=== PATIENT | male | born 1940 | race Caucasian/White ===

== ENCOUNTER 2018-01-12 05:28 | Inpatient (IN) | payer MEDICARE, BC ==
[2018-01-12] MEDS ORDERED: CEFAZOLIN 1 GM INJ IM (06:30)
[2018-01-12] MEDS ORDERED: PROPOFOL 20 ML (06:56)
[2018-01-12] MEDS ORDERED: ROCURONIUM 50 MG INJ ×2 (06:56→07:49)
[2018-01-12] MEDS ORDERED: ETOMIDATE 20 MG INJ (06:56)
[2018-01-12] MEDS ORDERED: SODIUM CL BACTERIOSTATIC 30 ML INJ (06:56)
[2018-01-12] MEDS ORDERED: LIDOCAINE 1% (MDV) 20 ML INJ (06:57)
[2018-01-12] MEDS ORDERED: NALOXONE (0.4 MG/ML) INJ IV (07:00)
[2018-01-12] MEDS ORDERED: BISACODYL 10 MG SUPP PR (07:00)
[2018-01-12] MEDS ORDERED: ONDANSETRON 4 MG INJ IV ×2 (07:00→12:30)
[2018-01-12] MEDS ORDERED: SUCCINYLCHOLINE CHLORIDE 100 MG/5 ML SYG IV (07:00)
[2018-01-12] MEDS: LACTATED RINGER'S 1,000 ML IV* (07:00)
[2018-01-12] MEDS ORDERED: AL HYDROX/MG HYDROX/SIMETH 30 ML CUP PO (07:00)
[2018-01-12] MEDS ORDERED: CEPASTAT LOZENGE MT (07:00)
[2018-01-12] MEDS ORDERED: DIPHENHYDRAMINE 50 MG INJ IV (07:00)
[2018-01-12] MEDS ORDERED: DIPHENHYDRAMINE 25 MG CAP PO (07:00)
[2018-01-12] MEDS ORDERED: HYDROCODONE/APAP (10/325) TAB PO (07:00)
[2018-01-12] MEDS: CEFAZOLIN 2 GM/50 ML (PMX) 50 ML IVPB (07:20)
[2018-01-12] MEDS ORDERED: PHENYLephrine (100 MCG/ML) 5ML SYG (07:25)
[2018-01-12] MEDS ORDERED: CEFAZOLIN 1 GM INJ ×2 (07:28→11:20)
[2018-01-12] MEDS ORDERED: ONDANSETRON 4 MG INJ (08:20)
[2018-01-12] MEDS ORDERED: DEXAMETHASONE 4 MG/ML 1 ML INJ (08:20)
[2018-01-12] MEDS: CA CHLORIDE 10% 10 ML SYRINGE (08:34)
[2018-01-12] MEDS: BUPIVACAINE 0.25% (MPF) 30 ML INJ (08:34)
[2018-01-12] MEDS: CEFAZOLIN 1 GM INJ (08:35)
[2018-01-12] MEDS: GELATIN SIZE 100 SPONGE (08:36)
[2018-01-12] MEDS: HEPARIN 1000 UNITS/ML 10 ML INJ ×2 (08:36)
[2018-01-12] MEDS: SURGIFOAM POWDER 1 GM KIT (08:36)
[2018-01-12] MEDS: THROMBIN 5000 UNIT VIAL ×2 (08:37→10:27)
[2018-01-12] MEDS ORDERED: THROMBIN(HUM PLAS)/FIBRINOG/CA 5 ML VIAL TOP (10:34)
[2018-01-12] MEDS ORDERED: SUGAMMADEX SODIUM 200 MG/2 ML VIAL IV (11:50)
[2018-01-12] MEDS ORDERED: FENTAnyl 50 MCG/ML VIAL (11:55)
[2018-01-12] MEDS: HYDROmorphONE 0.2 MG/ML PCA IV ×2 (12:20→22:08)
[2018-01-12] MEDS: ACETAMINOPHEN 1000MG/100ML IV 100 ML IVPB (12:28)
[2018-01-12] MEDS: CEFAZOLIN 1 GM/50 ML (PMX) 50 ML IVPB ×2 (12:28→20:41)
[2018-01-12] MEDS ORDERED: HYDROmorphONE (0.2 MG/ML) 10ML SYG IV (12:30)
[2018-01-12] MEDS ORDERED: MEPERIDINE 25 MG INJ IV (12:30)
[2018-01-12] MEDS ORDERED: LABETALOL HCL 20MG INJ IV (12:30)
[2018-01-12] MEDS ORDERED: hydrALAzine 20 MG INJ IV (12:30)
[2018-01-12] MEDS: HYDROmorphONE (0.2 MG/ML) 10ML SYG IV (12:31)
[2018-01-12] MEDS: LOSARTAN 25 MG TAB PO (13:00)
[2018-01-12] MEDS: NEBIVOLOL 5 MG TAB PO (13:00)
[2018-01-12] MEDS: D5W-0.45 NACL + KCL 20 MEQ 1,000 ML IV ×2 (16:30→17:23)
[2018-01-12] MEDS: TAMSULOSIN (SR) 0.4 MG CAP PO (20:41)
[2018-01-12] MEDS: FERROUS SULFATE (EC) 325 MG TAB PO (20:41)
[2018-01-12] MEDS: DOCUSATE SODIUM 100 MG CAP PO (20:41)
[2018-01-12] MEDS: QUETIAPINE 25 MG TAB PO (22:21)
[2018-01-13] MEDS: D5W-0.45 NACL + KCL 20 MEQ 1,000 ML IV ×3 (03:17→23:00)
[2018-01-13] MEDS: CEFAZOLIN 1 GM/50 ML (PMX) 50 ML IVPB (03:17)
[2018-01-13] MEDS: PANTOPRAZOLE 40 MG INJ IV (05:14)
[2018-01-13 05:46] LABS: ADD MAN DIFF? NO
[2018-01-13 06:13] LABS: ANION GAP 8 (8-16); BLOOD UREA NITROGEN 18 mg/dl (7-20); CALCIUM 8.2 mg/dl (8.4-10.2); CARBON DIOXIDE 31 mmol/L (21-31); CHLORIDE 103 mmol/L (97-110); CREATININE 0.98 mg/dl (0.61-1.24); GLUCOSE 137 mg/dl (70-220); MAGNESIUM 1.8 mg/dl (1.7-2.5); POTASSIUM 4.3 mmol/L (3.5-5.1); SODIUM 138 mmol/L (135-144)
[2018-01-13 07:27] LABS: BASOPHILS % 0.2 % (0.0-2.0); EOSINOPHILS % 0.1 % (0.0-7.0); HEMATOCRIT 29.5 % (42.0-52.0); LYMPHOCYTES # 1.1 10^3/ul (0.8-2.9); LYMPHOCYTES % 10.4 % (15.0-51.0); MEAN CORPUSCULAR HEMOGLOBIN 33.4 pg (29.0-33.0); MEAN CORPUSCULAR HGB CONC 33.9 g/dl (32.0-37.0); MEAN CORPUSCULAR VOLUME 98.7 fl (82.0-101.0); MEAN PLATELET VOLUME 10.2 fl (7.4-10.4); MONOCYTE # 1.2 10^3/ul (0.3-0.9); MONOCYTES % 11.4 % (0.0-11.0); NEUTROPHIL # 7.8 10^3/ul (1.6-7.5); NEUTROPHILS % 77.7 % (39.0-77.0); PLATELET COUNT 115 10^3/UL (140-415); RED BLOOD COUNT 2.99 10^6/ul (4.70-6.10); RED CELL DISTRIBUTION WIDTH 12.9 % (11.5-14.5)
[2018-01-13 07:27] LABS: WHITE BLOOD COUNT 10.1 10^3/ul (4.8-10.8)
[2018-01-13] MEDS: FERROUS SULFATE (EC) 325 MG TAB PO ×3 (08:47→20:29)
[2018-01-13] MEDS: ASCORBIC ACID 500 MG TAB PO (08:47)
[2018-01-13] MEDS: DOCUSATE SODIUM 100 MG CAP PO ×2 (08:47→20:29)
[2018-01-13] MEDS: QUETIAPINE 25 MG TAB PO ×2 (08:48→20:29)
[2018-01-13] MEDS: FINASTERIDE 5 MG TAB PO (08:48)
[2018-01-13] MEDS: HYDROmorphONE 0.2 MG/ML PCA IV ×2 (08:48→18:00)
[2018-01-13] MEDS: CYCLOBENZAPRINE 10 MG TAB PO ×2 (08:53→16:42)
[2018-01-13] MEDS: NEBIVOLOL 5 MG TAB PO (09:00)
[2018-01-13] MEDS ORDERED: NON-FORMULARY/PATIENT OWN MED (Omeprazole* 40 MG) PO (09:00)
[2018-01-13] MEDS ORDERED: NISOLDIPINE 34 MG PO (09:00)
[2018-01-13] MEDS: LOSARTAN 25 MG TAB PO (09:00)
[2018-01-13] MEDS: HYDROCODONE/APAP (10/325) TAB PO (18:08)
[2018-01-13] MEDS: TAMSULOSIN (SR) 0.4 MG CAP PO (20:29)
[2018-01-13] MEDS: ATORVASTATIN 20 MG TAB PO (20:29)
[2018-01-14] MEDS: ACETAMINOPHEN 325 MG TAB PO (00:45)
[2018-01-14] MEDS: CYCLOBENZAPRINE 10 MG TAB PO ×3 (00:47→21:57)
[2018-01-14 04:50] LABS: ADD MAN DIFF? NO
[2018-01-14 04:58] LABS: WHITE BLOOD COUNT 9.8 10^3/ul (4.8-10.8)
[2018-01-14 04:58] LABS: ABNORMAL IP MESSAGE 1; BASOPHILS % 0.2 % (0.0-2.0); EOSINOPHILS # 0.1 10^3/ul (0.0-0.5); EOSINOPHILS % 0.9 % (0.0-7.0); HEMATOCRIT 27.4 % (42.0-52.0); HEMOGLOBIN 9.4 g/dl (14.0-18.0); LYMPHOCYTES # 1.1 10^3/ul (0.8-2.9); LYMPHOCYTES % 11.6 % (15.0-51.0); MEAN CORPUSCULAR HEMOGLOBIN 34.1 pg (29.0-33.0); MEAN CORPUSCULAR HGB CONC 34.3 g/dl (32.0-37.0); MEAN CORPUSCULAR VOLUME 99.3 fl (82.0-101.0); MEAN PLATELET VOLUME 9.8 fl (7.4-10.4); MONOCYTE # 1.1 10^3/ul (0.3-0.9); MONOCYTES % 11.7 % (0.0-11.0); NEUTROPHIL # 7.4 10^3/ul (1.6-7.5); NEUTROPHILS % 75.3 % (39.0-77.0); PLATELET COUNT 91 10^3/UL (140-415); POSITIVE DIFF @See below; RED BLOOD COUNT 2.76 10^6/ul (4.70-6.10); RED CELL DISTRIBUTION WIDTH 12.7 % (11.5-14.5)
[2018-01-14 05:18] LABS: ANION GAP 7 (8-16); BLOOD UREA NITROGEN 10 mg/dl (7-20); CALCIUM 8.3 mg/dl (8.4-10.2); CARBON DIOXIDE 32 mmol/L (21-31); CHLORIDE 103 mmol/L (97-110); CREATININE 0.78 mg/dl (0.61-1.24); GLUCOSE 106 mg/dl (70-220); MAGNESIUM 1.8 mg/dl (1.7-2.5); POTASSIUM 3.8 mmol/L (3.5-5.1); SODIUM 138 mmol/L (135-144)
[2018-01-14] MEDS: PANTOPRAZOLE 40 MG INJ IV (06:02)
[2018-01-14] MEDS: HYDROCODONE/APAP (10/325) TAB PO ×4 (08:22→20:57)
[2018-01-14] MEDS: ASCORBIC ACID 500 MG TAB PO (08:58)
[2018-01-14] MEDS: FINASTERIDE 5 MG TAB PO (08:58)
[2018-01-14] MEDS: AMLODIPINE 5 MG TAB PO ×2 (08:59→20:58)
[2018-01-14] MEDS: NEBIVOLOL 5 MG TAB PO (08:59)
[2018-01-14] MEDS: LOSARTAN 25 MG TAB PO (08:59)
[2018-01-14] MEDS: D5W-0.45 NACL + KCL 20 MEQ 1,000 ML IV (09:00)
[2018-01-14] MEDS: QUETIAPINE 25 MG TAB PO ×2 (09:00→20:57)
[2018-01-14] MEDS: DOCUSATE SODIUM 100 MG CAP PO ×2 (09:00→20:57)
[2018-01-14] MEDS: FERROUS SULFATE (EC) 325 MG TAB PO ×3 (09:00→20:57)
[2018-01-14 11:46] LABS: ADD UMIC YES; UR ASCORBIC ACID 20 mg/dL (NEGATIVE); UR BACTERIA FEW /HPF (NONE SEEN); UR BILIRUBIN (Dip) NEGATIVE (NEGATIVE); UR BLOOD (Dip) 3+ mg/dL (NEGATIVE); UR CLARITY SLIGHTLY CLOUDY (CLEAR); UR COLOR RED (YELLOW); UR GLUCOSE (Dip) NEGATIVE (NEGATIVE); UR KETONES (Dip) NEGATIVE (NEGATIVE); UR LEUKOCYTE ESTERASE (Dip) TRACE Leu/ul (NEGATIVE); UR NITRITE (Dip) NEGATIVE (NEGATIVE); UR RBC > 182 /HPF (0-5); UR SPECIFIC GRAVITY (Dip) 1.011 (1.003-1.030); UR TOTAL PROTEIN (Dip) 2+ mg/dl (NEGATIVE); UR UROBILINOGEN (Dip) NEGATIVE (NEGATIVE); UR WBC > 182 /HPF (0-5)
[2018-01-14] MEDS: ATORVASTATIN 20 MG TAB PO (20:57)
[2018-01-14] MEDS: TAMSULOSIN (SR) 0.4 MG CAP PO (20:57)
[2018-01-14] MEDS: HYDROmorphONE 0.5 MG/0.5 ML SYG IV (22:36)
[2018-01-15] MEDS: HYDROCODONE/APAP (10/325) TAB PO ×4 (04:04→18:22)
[2018-01-15 05:20] LABS: ADD MAN DIFF? NO
[2018-01-15 05:35] LABS: WHITE BLOOD COUNT 8.6 10^3/ul (4.8-10.8)
[2018-01-15 05:35] LABS: BASOPHILS % 0.3 % (0.0-2.0); EOSINOPHILS # 0.3 10^3/ul (0.0-0.5); EOSINOPHILS % 2.9 % (0.0-7.0); HEMATOCRIT 29.6 % (42.0-52.0); HEMOGLOBIN 9.9 g/dl (14.0-18.0); MEAN CORPUSCULAR HEMOGLOBIN 33.7 pg (29.0-33.0); MEAN CORPUSCULAR HGB CONC 33.4 g/dl (32.0-37.0); MEAN CORPUSCULAR VOLUME 100.7 fl (82.0-101.0); MEAN PLATELET VOLUME 10.6 fl (7.4-10.4); MONOCYTE # 0.8 10^3/ul (0.3-0.9); MONOCYTES % 8.7 % (0.0-11.0); NEUTROPHIL # 6.5 10^3/ul (1.6-7.5); NEUTROPHILS % 75.6 % (39.0-77.0); PLATELET COUNT 102 10^3/UL (140-415); POSITIVE DIFF @See below; RED BLOOD COUNT 2.94 10^6/ul (4.70-6.10); RED CELL DISTRIBUTION WIDTH 12.4 % (11.5-14.5)
[2018-01-15 05:56] LABS: ANION GAP 10 (8-16); BLOOD UREA NITROGEN 7 mg/dl (7-20); CALCIUM 8.5 mg/dl (8.4-10.2); CARBON DIOXIDE 31 mmol/L (21-31); CHLORIDE 103 mmol/L (97-110); CREATININE 0.79 mg/dl (0.61-1.24); GLUCOSE 103 mg/dl (70-220); MAGNESIUM 1.8 mg/dl (1.7-2.5); POTASSIUM 3.9 mmol/L (3.5-5.1); SODIUM 140 mmol/L (135-144)
[2018-01-15] MEDS: CYCLOBENZAPRINE 10 MG TAB PO ×2 (06:00→17:17)
[2018-01-15] MEDS: PANTOPRAZOLE 40 MG INJ IV (06:00)
[2018-01-15] MEDS: ASCORBIC ACID 500 MG TAB PO (08:24)
[2018-01-15] MEDS: FINASTERIDE 5 MG TAB PO (08:24)
[2018-01-15] MEDS: LOSARTAN 25 MG TAB PO (08:25)
[2018-01-15] MEDS: AMLODIPINE 5 MG TAB PO ×2 (08:25→20:13)
[2018-01-15] MEDS: QUETIAPINE 25 MG TAB PO ×2 (08:25→20:13)
[2018-01-15] MEDS: FERROUS SULFATE (EC) 325 MG TAB PO ×3 (08:25→20:13)
[2018-01-15] MEDS: DOCUSATE SODIUM 100 MG CAP PO ×2 (08:25→20:13)
[2018-01-15] MEDS: NEBIVOLOL 5 MG TAB PO (08:32)
[2018-01-15] MEDS: TAMSULOSIN (SR) 0.4 MG CAP PO (20:13)
[2018-01-15] MEDS: ATORVASTATIN 20 MG TAB PO (20:13)
== END 2018-01-15 21:15 | DRG 519 ==
LOC: REC 05:28 → MS1 15:35
PROC: 01NB0ZZ Release Lumbar Nerve, Open Approach (ICD-10-PCS; principal; 2018-01-12 07:00)
PROC: 00QT0ZZ Repair Spinal Meninges, Open Approach (ICD-10-PCS; 2018-01-12 07:00)
DX: M48.062 Spinal stenosis, lumbar region with neurogenic claudication (principal); G97.41 Accidental puncture or laceration of dura during a procedure; E66.01 Morbid (severe) obesity due to excess calories; I35.0 Nonrheumatic aortic (valve) stenosis; M41.86 Other forms of scoliosis, lumbar region; M51.17 Intervertebral disc disorders with radiculopathy, lumbosacral region; Z68.37 Body mass index [BMI] 37.0-37.9, adult; N40.0 Benign prostatic hyperplasia without lower urinary tract symptoms; I10 Essential (primary) hypertension; E78.2 Mixed hyperlipidemia; K21.9 Gastro-esophageal reflux disease without esophagitis; Z96.611 Presence of right artificial shoulder joint; Z87.891 Personal history of nicotine dependence; Z85.828 Personal history of other malignant neoplasm of skin
CPT/HCPCS: 71045; 72020; 80048; 81001; 83735; 85025; 86850; 86900; 86901; 86999; 87040; 87086; 88304; 88311; 97116; 97163; 97530

== ENCOUNTER 2018-01-15 19:34 | Inpatient (IN) | payer MEDICARE, BC ==
[2018-01-15] MEDS ORDERED: BISACODYL 10 MG SUPP PR ×2 (22:30→23:30)
[2018-01-15] MEDS ORDERED: LACTULOSE 30ML CUP PO (22:30)
[2018-01-15] MEDS ORDERED: PENDING SANTYL ORDER FOR WOUND CARE XX (22:30)
[2018-01-15] MEDS ORDERED: ACETAMINOPHEN 325 MG TAB PO (22:30)
[2018-01-15] MEDS ORDERED: CEPASTAT LOZENGE MT (23:30)
[2018-01-15] MEDS: HYDROCODONE/APAP (10/325) TAB PO (23:40)
[2018-01-16] MEDS ORDERED: DIPHENHYDRAMINE 25 MG CAP PO (00:30)
[2018-01-16] MEDS ORDERED: NALOXONE (0.4 MG/ML) INJ IV (00:30)
[2018-01-16] MEDS ORDERED: ONDANSETRON 4 MG INJ IV (00:30)
[2018-01-16] MEDS ORDERED: DIPHENHYDRAMINE 50 MG INJ IV (00:30)
[2018-01-16 00:46] LABS: ADD UMIC YES; UR ASCORBIC ACID 40 mg/dL (NEGATIVE); UR BILIRUBIN (Dip) NEGATIVE (NEGATIVE); UR BLOOD (Dip) 2+ mg/dL (NEGATIVE); UR CLARITY CLEAR (CLEAR); UR COLOR YELLOW (YELLOW); UR GLUCOSE (Dip) NEGATIVE (NEGATIVE); UR KETONES (Dip) NEGATIVE (NEGATIVE); UR LEUKOCYTE ESTERASE (Dip) TRACE Leu/ul (NEGATIVE); UR NITRITE (Dip) NEGATIVE (NEGATIVE); UR RBC 95 /HPF (0-5); UR SPECIFIC GRAVITY (Dip) 1.015 (1.003-1.030); UR TOTAL PROTEIN (Dip) 1+ mg/dl (NEGATIVE); UR UROBILINOGEN (Dip) 2+ mg/dL (NEGATIVE); UR WBC 11 /HPF (0-5)
[2018-01-16] MEDS: HYDROCODONE/APAP (10/325) TAB PO ×5 (04:06→20:34)
[2018-01-16] MEDS: PANTOPRAZOLE 40 MG INJ IV (05:20)
[2018-01-16 07:54] LABS: ADD MAN DIFF? NO
[2018-01-16 08:06] LABS: WHITE BLOOD COUNT 6.4 10^3/ul (4.8-10.8)
[2018-01-16 08:06] LABS: BASOPHILS % 0.3 % (0.0-2.0); EOSINOPHILS # 0.3 10^3/ul (0.0-0.5); EOSINOPHILS % 4.3 % (0.0-7.0); HEMATOCRIT 27.7 % (42.0-52.0); HEMOGLOBIN 9.3 g/dl (14.0-18.0); LYMPHOCYTES % 15.5 % (15.0-51.0); MEAN CORPUSCULAR HEMOGLOBIN 33.6 pg (29.0-33.0); MEAN CORPUSCULAR HGB CONC 33.6 g/dl (32.0-37.0); MEAN PLATELET VOLUME 10.7 fl (7.4-10.4); MONOCYTE # 0.7 10^3/ul (0.3-0.9); MONOCYTES % 10.1 % (0.0-11.0); NEUTROPHIL # 4.5 10^3/ul (1.6-7.5); NEUTROPHILS % 69.6 % (39.0-77.0); PLATELET COUNT 124 10^3/UL (140-415); RED BLOOD COUNT 2.77 10^6/ul (4.70-6.10); RED CELL DISTRIBUTION WIDTH 12.6 % (11.5-14.5)
[2018-01-16] MEDS: FERROUS SULFATE (EC) 325 MG TAB PO ×3 (08:13→20:35)
[2018-01-16] MEDS: DOCUSATE SODIUM 100 MG CAP PO ×2 (08:13→21:00)
[2018-01-16] MEDS: FINASTERIDE 5 MG TAB PO (08:13)
[2018-01-16] MEDS: ASCORBIC ACID 500 MG TAB PO (08:14)
[2018-01-16] MEDS: NEBIVOLOL 5 MG TAB PO (08:14)
[2018-01-16] MEDS: AMLODIPINE 5 MG TAB PO ×2 (08:15→20:37)
[2018-01-16] MEDS: LOSARTAN 25 MG TAB PO (08:15)
[2018-01-16] MEDS: QUETIAPINE 25 MG TAB PO ×2 (08:15→20:35)
[2018-01-16 08:32] LABS: ALANINE AMINOTRANSFERASE 36 IU/L (13-69); ALBUMIN/GLOBULIN RATIO 1.25; ALKALINE PHOSPHATASE 49 IU/L (42-121); ANION GAP 10 (8-16); ASPARTATE AMINO TRANSFERASE 23 IU/L (15-46); BILIRUBIN,INDIRECT 0.6 mg/dl (0-1.1); BILIRUBIN,TOTAL 0.6 mg/dl (0.2-1.3); BLOOD UREA NITROGEN 6 mg/dl (7-20); CALCIUM 8.7 mg/dl (8.4-10.2); CARBON DIOXIDE 34 mmol/L (21-31); CHLORIDE 103 mmol/L (97-110); CREATININE 0.74 mg/dl (0.61-1.24); GLUCOSE 96 mg/dl (70-220); POTASSIUM 4.5 mmol/L (3.5-5.1); SODIUM 142 mmol/L (135-144); TOTAL PROTEIN 5.4 g/dl (6.1-8.1)
[2018-01-16] MEDS ORDERED: DOCUSATE SODIUM 100 MG CAP PO (09:00)
[2018-01-16] MEDS: GUAIFENESIN/CODEINE 5ML CUP PO (10:37)
[2018-01-16 10:43] LABS: IRON 17 ug/dl (35-150)
[2018-01-16 10:59] LABS: % IRON SATURATION 7 % SAT (22-52); TOTAL IRON BINDING CAPACITY 228 ug/dl (241-421)
[2018-01-16] MEDS: MAGNESIUM HYDROXIDE 30ML CUP PO (15:33)
[2018-01-16] MEDS: TAMSULOSIN (SR) 0.4 MG CAP PO (20:35)
[2018-01-16] MEDS: ATORVASTATIN 20 MG TAB PO (20:35)
[2018-01-16] MEDS: AL HYDROX/MG HYDROX/SIMETH 30 ML CUP PO (20:40)
[2018-01-16] MEDS ORDERED: SENNA TAB PO (21:00)
[2018-01-16] MEDS: SENNA TAB PO (21:00)
[2018-01-17] MEDS: HYDROCODONE/APAP (10/325) TAB PO ×5 (01:02→20:14)
[2018-01-17] MEDS: PANTOPRAZOLE (EC) 40 MG TAB PO (05:06)
[2018-01-17] MEDS: DOCUSATE SODIUM 100 MG CAP PO ×2 (08:40→20:13)
[2018-01-17] MEDS: FERROUS SULFATE (EC) 325 MG TAB PO ×3 (08:42→20:13)
[2018-01-17] MEDS: ASCORBIC ACID 500 MG TAB PO (08:44)
[2018-01-17] MEDS: FINASTERIDE 5 MG TAB PO (08:45)
[2018-01-17] MEDS: AMLODIPINE 5 MG TAB PO ×2 (08:46→20:14)
[2018-01-17] MEDS: LOSARTAN 25 MG TAB PO (08:46)
[2018-01-17] MEDS: HYDROmorphONE 0.5 MG/0.5 ML SYG IV ×7 (08:47→22:18)
[2018-01-17] MEDS: CYCLOBENZAPRINE 10 MG TAB PO ×2 (09:00→12:50)
[2018-01-17] MEDS: NEBIVOLOL 5 MG TAB PO (10:03)
[2018-01-17] MEDS: QUETIAPINE 25 MG TAB PO ×2 (10:31→20:13)
[2018-01-17] MEDS: TOLTERODINE (SR) 4 MG CAP PO (15:05)
[2018-01-17 15:32] LABS: ADD UMIC YES; UR ASCORBIC ACID 40 mg/dL (NEGATIVE); UR BILIRUBIN (Dip) NEGATIVE (NEGATIVE); UR BLOOD (Dip) NEGATIVE (NEGATIVE); UR CLARITY CLEAR (CLEAR); UR COLOR YELLOW (YELLOW); UR GLUCOSE (Dip) NEGATIVE (NEGATIVE); UR KETONES (Dip) NEGATIVE (NEGATIVE); UR LEUKOCYTE ESTERASE (Dip) NEGATIVE Leu/ul (NEGATIVE); UR NITRITE (Dip) NEGATIVE (NEGATIVE); UR RBC 10 /HPF (0-5); UR SPECIFIC GRAVITY (Dip) 1.014 (1.003-1.030); UR TOTAL PROTEIN (Dip) 1+ mg/dl (NEGATIVE); UR UROBILINOGEN (Dip) 1+ mg/dL (NEGATIVE); UR WBC 2 /HPF (0-5)
[2018-01-17] MEDS: SENNA TAB PO (20:12)
[2018-01-17] MEDS: ATORVASTATIN 20 MG TAB PO (20:13)
[2018-01-17] MEDS: TAMSULOSIN (SR) 0.4 MG CAP PO (20:13)
[2018-01-18] MEDS: HYDROCODONE/APAP (10/325) TAB PO ×2 (02:06→06:08)
[2018-01-18] MEDS: HYDROmorphONE 0.5 MG/0.5 ML SYG IV ×10 (04:15→21:58)
[2018-01-18] MEDS: PANTOPRAZOLE (EC) 40 MG TAB PO (06:08)
[2018-01-18 07:19] LABS: ADD MAN DIFF? NO
[2018-01-18 07:27] LABS: BASOPHILS % 0.5 % (0.0-2.0); EOSINOPHILS # 0.4 10^3/ul (0.0-0.5); EOSINOPHILS % 7.2 % (0.0-7.0); HEMATOCRIT 29.8 % (42.0-52.0); LYMPHOCYTES # 0.9 10^3/ul (0.8-2.9); LYMPHOCYTES % 16.9 % (15.0-51.0); MEAN CORPUSCULAR HEMOGLOBIN 33.7 pg (29.0-33.0); MEAN CORPUSCULAR HGB CONC 33.6 g/dl (32.0-37.0); MEAN CORPUSCULAR VOLUME 100.3 fl (82.0-101.0); MEAN PLATELET VOLUME 9.7 fl (7.4-10.4); MONOCYTE # 0.7 10^3/ul (0.3-0.9); MONOCYTES % 12.2 % (0.0-11.0); NEUTROPHIL # 3.5 10^3/ul (1.6-7.5); PLATELET COUNT 175 10^3/UL (140-415); RED BLOOD COUNT 2.97 10^6/ul (4.70-6.10); RED CELL DISTRIBUTION WIDTH 12.2 % (11.5-14.5)
[2018-01-18 07:27] LABS: WHITE BLOOD COUNT 5.6 10^3/ul (4.8-10.8)
[2018-01-18 07:56] LABS: ANION GAP 14 (8-16); BLOOD UREA NITROGEN 9 mg/dl (7-20); CALCIUM 9.1 mg/dl (8.4-10.2); CARBON DIOXIDE 27 mmol/L (21-31); CHLORIDE 101 mmol/L (97-110); CREATININE 0.72 mg/dl (0.61-1.24); GLUCOSE 97 mg/dl (70-220); MAGNESIUM 2.1 mg/dl (1.7-2.5); PHOSPHORUS 3.9 mg/dl (2.5-4.9); POTASSIUM 4.2 mmol/L (3.5-5.1); SODIUM 138 mmol/L (135-144)
[2018-01-18] MEDS: QUETIAPINE 25 MG TAB PO ×2 (08:41→21:53)
[2018-01-18] MEDS: TOLTERODINE (SR) 4 MG CAP PO (08:41)
[2018-01-18] MEDS: ASCORBIC ACID 500 MG TAB PO (08:41)
[2018-01-18] MEDS: DOCUSATE SODIUM 100 MG CAP PO ×2 (08:41→21:49)
[2018-01-18] MEDS: FERROUS SULFATE (EC) 325 MG TAB PO ×3 (08:41→21:49)
[2018-01-18] MEDS: FERROUS FUMARATE (SR) TAB PO ×2 (08:42→21:49)
[2018-01-18] MEDS: FINASTERIDE 5 MG TAB PO (08:42)
[2018-01-18] MEDS: LOSARTAN 25 MG TAB PO (08:42)
[2018-01-18] MEDS: AMLODIPINE 5 MG TAB PO ×2 (08:42→21:53)
[2018-01-18] MEDS: NEBIVOLOL 5 MG TAB PO (08:42)
[2018-01-18] MEDS: CYCLOBENZAPRINE 10 MG TAB PO (18:14)
[2018-01-18] MEDS: LACTULOSE 30ML CUP PO (18:21)
[2018-01-18] MEDS: SENNA TAB PO (21:00)
[2018-01-18] MEDS: TAMSULOSIN (SR) 0.4 MG CAP PO (21:50)
[2018-01-18] MEDS: ATORVASTATIN 20 MG TAB PO (21:53)
[2018-01-19] MEDS: HYDROmorphONE 0.5 MG/0.5 ML SYG IV ×3 (00:52→04:10)
[2018-01-19] MEDS: ACETAMINOPHEN 325 MG TAB PO (02:28)
[2018-01-19] MEDS: PANTOPRAZOLE (EC) 40 MG TAB PO (05:27)
[2018-01-19] MEDS: HYDROCODONE/APAP (10/325) TAB PO ×5 (05:28→21:59)
[2018-01-19] MEDS: DOCUSATE SODIUM 100 MG CAP PO ×2 (08:56→21:58)
[2018-01-19] MEDS: FERROUS SULFATE (EC) 325 MG TAB PO ×3 (08:56→22:00)
[2018-01-19] MEDS: ASCORBIC ACID 500 MG TAB PO (08:56)
[2018-01-19] MEDS: QUETIAPINE 25 MG TAB PO ×2 (08:56→21:58)
[2018-01-19] MEDS: FERROUS FUMARATE (SR) TAB PO ×2 (08:56→22:00)
[2018-01-19] MEDS: TOLTERODINE (SR) 4 MG CAP PO (08:57)
[2018-01-19] MEDS: FINASTERIDE 5 MG TAB PO (08:57)
[2018-01-19] MEDS: AMLODIPINE 5 MG TAB PO ×2 (08:59→22:00)
[2018-01-19] MEDS ORDERED: LOSARTAN 25 MG TAB PO (09:00)
[2018-01-19] MEDS: FUROSEMIDE 20 MG TAB PO (09:09)
[2018-01-19] MEDS: LOSARTAN 50 MG TAB PO (09:11)
[2018-01-19] MEDS: CYCLOBENZAPRINE 10 MG TAB PO (09:50)
[2018-01-19] MEDS: NEBIVOLOL 5 MG TAB PO (11:23)
[2018-01-19] MEDS: TAMSULOSIN (SR) 0.4 MG CAP PO (22:00)
[2018-01-19] MEDS: SENNA TAB PO (22:00)
[2018-01-19] MEDS: ATORVASTATIN 20 MG TAB PO (22:00)
[2018-01-20] MEDS: HYDROCODONE/APAP (10/325) TAB PO ×4 (03:15→20:42)
[2018-01-20] MEDS: PANTOPRAZOLE (EC) 40 MG TAB PO (06:34)
[2018-01-20] MEDS: HYDROmorphONE 0.5 MG/0.5 ML SYG IV ×5 (07:59→17:30)
[2018-01-20] MEDS: DOCUSATE SODIUM 100 MG CAP PO ×2 (08:03→20:35)
[2018-01-20] MEDS: CYCLOBENZAPRINE 10 MG TAB PO (08:04)
[2018-01-20] MEDS: ASCORBIC ACID 500 MG TAB PO (08:04)
[2018-01-20] MEDS: AMLODIPINE 5 MG TAB PO ×2 (08:05→20:38)
[2018-01-20] MEDS: FERROUS FUMARATE (SR) TAB PO ×2 (10:04→20:41)
[2018-01-20] MEDS: FERROUS SULFATE (EC) 325 MG TAB PO ×3 (10:05→20:41)
[2018-01-20] MEDS: LOSARTAN 50 MG TAB PO (10:05)
[2018-01-20] MEDS: FINASTERIDE 5 MG TAB PO (10:05)
[2018-01-20] MEDS: TOLTERODINE (SR) 4 MG CAP PO (10:06)
[2018-01-20] MEDS: QUETIAPINE 25 MG TAB PO ×2 (10:06→20:41)
[2018-01-20] MEDS: FUROSEMIDE 20 MG TAB PO (10:06)
[2018-01-20] MEDS: NEBIVOLOL 5 MG TAB PO (10:07)
[2018-01-20] MEDS: EUCERIN 113 GM CR TOP ×2 (12:08→20:41)
[2018-01-20] MEDS: SENNA TAB PO (20:35)
[2018-01-20] MEDS: ATORVASTATIN 20 MG TAB PO (20:37)
[2018-01-20] MEDS: TAMSULOSIN (SR) 0.4 MG CAP PO (20:37)
[2018-01-20] MEDS: LACTULOSE 30ML CUP PO (20:54)
[2018-01-21] MEDS: HYDROCODONE/APAP (10/325) TAB PO ×6 (03:01→22:22)
[2018-01-21] MEDS: PANTOPRAZOLE (EC) 40 MG TAB PO (06:18)
[2018-01-21] MEDS: TOLTERODINE (SR) 4 MG CAP PO (08:42)
[2018-01-21] MEDS: FINASTERIDE 5 MG TAB PO (08:43)
[2018-01-21] MEDS: DOCUSATE SODIUM 100 MG CAP PO ×2 (08:43→20:33)
[2018-01-21] MEDS: QUETIAPINE 25 MG TAB PO ×2 (08:43→20:33)
[2018-01-21] MEDS: ASCORBIC ACID 500 MG TAB PO (08:43)
[2018-01-21] MEDS: AMLODIPINE 5 MG TAB PO ×2 (08:44→20:34)
[2018-01-21] MEDS: FUROSEMIDE 20 MG TAB PO (08:44)
[2018-01-21] MEDS: NEBIVOLOL 5 MG TAB PO (08:44)
[2018-01-21] MEDS: FERROUS FUMARATE (SR) TAB PO ×2 (08:50→20:34)
[2018-01-21] MEDS: EUCERIN 113 GM CR TOP ×3 (08:55→21:00)
[2018-01-21] MEDS: ATORVASTATIN 20 MG TAB PO (20:33)
[2018-01-21] MEDS: SENNA TAB PO (20:33)
[2018-01-21] MEDS: TAMSULOSIN (SR) 0.4 MG CAP PO (20:34)
[2018-01-21] MEDS: HYDROmorphONE 0.5 MG/0.5 ML SYG IV (20:35)
[2018-01-22] MEDS: HYDROCODONE/APAP (10/325) TAB PO ×5 (02:28→22:05)
[2018-01-22] MEDS: PANTOPRAZOLE (EC) 40 MG TAB PO (06:42)
[2018-01-22 07:12] LABS: ADD MAN DIFF? NO
[2018-01-22 07:19] LABS: BASOPHIL # 0.1 10^3/ul (0.0-0.1); EOSINOPHILS # 0.5 10^3/ul (0.0-0.5); EOSINOPHILS % 8.2 % (0.0-7.0); HEMATOCRIT 30.8 % (42.0-52.0); HEMOGLOBIN 10.3 g/dl (14.0-18.0); LYMPHOCYTES # 1.4 10^3/ul (0.8-2.9); MEAN CORPUSCULAR HEMOGLOBIN 33.7 pg (29.0-33.0); MEAN CORPUSCULAR HGB CONC 33.4 g/dl (32.0-37.0); MEAN CORPUSCULAR VOLUME 100.7 fl (82.0-101.0); MEAN PLATELET VOLUME 9.3 fl (7.4-10.4); MONOCYTE # 0.5 10^3/ul (0.3-0.9); MONOCYTES % 8.9 % (0.0-11.0); NEUTROPHIL # 3.4 10^3/ul (1.6-7.5); NEUTROPHILS % 57.6 % (39.0-77.0); PLATELET COUNT 285 10^3/UL (140-415); RED BLOOD COUNT 3.06 10^6/ul (4.70-6.10); RED CELL DISTRIBUTION WIDTH 12.2 % (11.5-14.5)
[2018-01-22 07:36] LABS: ANION GAP 10 (8-16); BLOOD UREA NITROGEN 10 mg/dl (7-20); CALCIUM 8.9 mg/dl (8.4-10.2); CARBON DIOXIDE 31 mmol/L (21-31); CHLORIDE 105 mmol/L (97-110); CREATININE 0.79 mg/dl (0.61-1.24); GLUCOSE 89 mg/dl (70-220); PHOSPHORUS 3.8 mg/dl (2.5-4.9); POTASSIUM 3.8 mmol/L (3.5-5.1); SODIUM 142 mmol/L (135-144)
[2018-01-22] MEDS: HYDROmorphONE 0.5 MG/0.5 ML SYG IV (08:38)
[2018-01-22] MEDS: AMLODIPINE 5 MG TAB PO ×2 (08:42→20:29)
[2018-01-22] MEDS: FUROSEMIDE 20 MG TAB PO (08:44)
[2018-01-22] MEDS: FERROUS FUMARATE (SR) TAB PO ×2 (08:45→20:18)
[2018-01-22] MEDS: QUETIAPINE 25 MG TAB PO ×2 (08:45→22:01)
[2018-01-22] MEDS: NEBIVOLOL 5 MG TAB PO (08:45)
[2018-01-22] MEDS: ASCORBIC ACID 500 MG TAB PO (08:45)
[2018-01-22] MEDS: FINASTERIDE 5 MG TAB PO (08:45)
[2018-01-22] MEDS: DOCUSATE SODIUM 100 MG CAP PO ×2 (08:45→20:19)
[2018-01-22] MEDS: EUCERIN 113 GM CR TOP ×3 (08:47→21:00)
[2018-01-22] MEDS: TOLTERODINE (SR) 4 MG CAP PO (09:38)
[2018-01-22] MEDS: ATORVASTATIN 20 MG TAB PO (20:18)
[2018-01-22] MEDS: SENNA TAB PO (20:19)
[2018-01-22] MEDS: TAMSULOSIN (SR) 0.4 MG CAP PO (20:29)
[2018-01-23] MEDS: HYDROCODONE/APAP (10/325) TAB PO ×5 (02:20→22:26)
[2018-01-23] MEDS: PANTOPRAZOLE (EC) 40 MG TAB PO (06:42)
[2018-01-23] MEDS: ASCORBIC ACID 500 MG TAB PO (09:10)
[2018-01-23] MEDS: DOCUSATE SODIUM 100 MG CAP PO ×2 (09:10→20:36)
[2018-01-23] MEDS: TOLTERODINE (SR) 4 MG CAP PO (09:10)
[2018-01-23] MEDS: QUETIAPINE 25 MG TAB PO ×2 (09:10→20:36)
[2018-01-23] MEDS: FUROSEMIDE 20 MG TAB PO (09:10)
[2018-01-23] MEDS: FERROUS FUMARATE (SR) TAB PO ×2 (09:10→20:37)
[2018-01-23] MEDS: NEBIVOLOL 5 MG TAB PO (09:10)
[2018-01-23] MEDS: AMLODIPINE 5 MG TAB PO ×2 (09:11→20:38)
[2018-01-23] MEDS: FINASTERIDE 5 MG TAB PO (09:11)
[2018-01-23] MEDS: EUCERIN 113 GM CR TOP ×3 (09:12→20:38)
[2018-01-23] MEDS: LACTULOSE 30ML CUP PO (17:39)
[2018-01-23] MEDS: ATORVASTATIN 20 MG TAB PO (20:36)
[2018-01-23] MEDS: TAMSULOSIN (SR) 0.4 MG CAP PO (20:37)
[2018-01-23] MEDS: SENNA TAB PO (20:37)
[2018-01-24] MEDS: PANTOPRAZOLE (EC) 40 MG TAB PO (06:03)
[2018-01-24] MEDS: HYDROCODONE/APAP (10/325) TAB PO ×5 (06:03→21:45)
[2018-01-24] MEDS: FUROSEMIDE 20 MG TAB PO (09:02)
[2018-01-24] MEDS: ASCORBIC ACID 500 MG TAB PO (09:02)
[2018-01-24] MEDS: DOCUSATE SODIUM 100 MG CAP PO ×2 (09:02→20:58)
[2018-01-24] MEDS: FERROUS FUMARATE (SR) TAB PO ×2 (09:03→20:57)
[2018-01-24] MEDS: QUETIAPINE 25 MG TAB PO ×2 (09:03→21:45)
[2018-01-24] MEDS: TOLTERODINE (SR) 4 MG CAP PO (09:03)
[2018-01-24] MEDS: AMLODIPINE 5 MG TAB PO ×2 (09:03→20:58)
[2018-01-24] MEDS: FINASTERIDE 5 MG TAB PO (09:03)
[2018-01-24] MEDS: NEBIVOLOL 5 MG TAB PO (09:04)
[2018-01-24] MEDS: EUCERIN 113 GM CR TOP ×3 (09:04→21:01)
[2018-01-24] MEDS: SENNA TAB PO (20:57)
[2018-01-24] MEDS: TAMSULOSIN (SR) 0.4 MG CAP PO (20:58)
[2018-01-24] MEDS: ATORVASTATIN 20 MG TAB PO (20:58)
[2018-01-24] MEDS: AL HYDROX/MG HYDROX/SIMETH 30 ML CUP PO (22:18)
[2018-01-25] MEDS: HYDROCODONE/APAP (10/325) TAB PO ×6 (02:07→23:29)
[2018-01-25] MEDS: PANTOPRAZOLE (EC) 40 MG TAB PO (06:19)
[2018-01-25] MEDS: FERROUS FUMARATE (SR) TAB PO ×2 (08:17→20:38)
[2018-01-25] MEDS: ASCORBIC ACID 500 MG TAB PO (08:17)
[2018-01-25] MEDS: DOCUSATE SODIUM 100 MG CAP PO ×2 (08:17→20:38)
[2018-01-25] MEDS: CYCLOBENZAPRINE 10 MG TAB PO (08:17)
[2018-01-25] MEDS: AMLODIPINE 5 MG TAB PO ×2 (08:18→20:40)
[2018-01-25] MEDS: NEBIVOLOL 5 MG TAB PO (08:41)
[2018-01-25] MEDS: QUETIAPINE 25 MG TAB PO ×2 (08:41→20:39)
[2018-01-25] MEDS: TOLTERODINE (SR) 4 MG CAP PO (08:41)
[2018-01-25] MEDS: FINASTERIDE 5 MG TAB PO (08:41)
[2018-01-25] MEDS: FUROSEMIDE 20 MG TAB PO (08:42)
[2018-01-25] MEDS: EUCERIN 113 GM CR TOP ×3 (08:42→20:42)
[2018-01-25 15:43] LABS: ADD MAN DIFF? NO
[2018-01-25 15:46] LABS: WHITE BLOOD COUNT 7.4 10^3/ul (4.8-10.8)
[2018-01-25 15:46] LABS: BASOPHIL # 0.1 10^3/ul (0.0-0.1); BASOPHILS % 0.8 % (0.0-2.0); EOSINOPHILS # 0.5 10^3/ul (0.0-0.5); EOSINOPHILS % 6.9 % (0.0-7.0); HEMATOCRIT 33.6 % (42.0-52.0); HEMOGLOBIN 11.3 g/dl (14.0-18.0); LYMPHOCYTES # 1.4 10^3/ul (0.8-2.9); LYMPHOCYTES % 19.2 % (15.0-51.0); MEAN CORPUSCULAR HEMOGLOBIN 33.2 pg (29.0-33.0); MEAN CORPUSCULAR HGB CONC 33.6 g/dl (32.0-37.0); MEAN CORPUSCULAR VOLUME 98.8 fl (82.0-101.0); MEAN PLATELET VOLUME 8.9 fl (7.4-10.4); MONOCYTE # 0.6 10^3/ul (0.3-0.9); NEUTROPHIL # 4.8 10^3/ul (1.6-7.5); NEUTROPHILS % 64.8 % (39.0-77.0); PLATELET COUNT 340 10^3/UL (140-415); RED CELL DISTRIBUTION WIDTH 12.1 % (11.5-14.5)
[2018-01-25] MEDS: TAMSULOSIN (SR) 0.4 MG CAP PO (20:38)
[2018-01-25] MEDS: ATORVASTATIN 20 MG TAB PO (20:38)
[2018-01-25] MEDS: SENNA TAB PO (20:38)
[2018-01-26] MEDS: HYDROCODONE/APAP (10/325) TAB PO ×2 (03:59→08:19)
[2018-01-26] MEDS: PANTOPRAZOLE (EC) 40 MG TAB PO (06:38)
[2018-01-26 07:28] LABS: ALANINE AMINOTRANSFERASE 31 IU/L (13-69); ALBUMIN 3.4 g/dl (3.3-4.9); ALKALINE PHOSPHATASE 66 IU/L (42-121); ANION GAP 11 (8-16); ASPARTATE AMINO TRANSFERASE 18 IU/L (15-46); BILIRUBIN,INDIRECT 0.2 mg/dl (0-1.1); BILIRUBIN,TOTAL 0.2 mg/dl (0.2-1.3); BLOOD UREA NITROGEN 10 mg/dl (7-20); CALCIUM 9.1 mg/dl (8.4-10.2); CARBON DIOXIDE 34 mmol/L (21-31); CHLORIDE 102 mmol/L (97-110); CREATININE 0.75 mg/dl (0.61-1.24); GLUCOSE 87 mg/dl (70-220); SODIUM 143 mmol/L (135-144)
[2018-01-26] MEDS: ASCORBIC ACID 500 MG TAB PO (08:21)
[2018-01-26] MEDS: TOLTERODINE (SR) 4 MG CAP PO (08:21)
[2018-01-26] MEDS: FUROSEMIDE 20 MG TAB PO (08:22)
[2018-01-26] MEDS: FERROUS FUMARATE (SR) TAB PO (08:22)
[2018-01-26] MEDS: DOCUSATE SODIUM 100 MG CAP PO (08:23)
[2018-01-26] MEDS: QUETIAPINE 25 MG TAB PO (08:23)
[2018-01-26] MEDS: FINASTERIDE 5 MG TAB PO (08:23)
[2018-01-26] MEDS: NEBIVOLOL 5 MG TAB PO (08:23)
[2018-01-26] MEDS: EUCERIN 113 GM CR TOP (08:24)
[2018-01-26] MEDS: AMLODIPINE 5 MG TAB PO (08:24)
== END 2018-01-26 12:10 | disposition home health service (06) | DRG 561 ==
LOC: VRC 01-16 09:11
PROC: F07Z5ZZ Bed Mobility Treatment (ICD-10-PCS; principal; 2018-01-16)
PROC: F07Z8ZZ Transfer Training Treatment (ICD-10-PCS; 2018-01-16)
PROC: F07Z9ZZ Gait Training/Functional Ambulation Treatment (ICD-10-PCS; 2018-01-16)
PROC: F08Z2ZZ Grooming/Personal Hygiene Treatment (ICD-10-PCS; 2018-01-16)
PROC: F08Z1ZZ Dressing Techniques Treatment (ICD-10-PCS; 2018-01-16)
PROC: F08Z0ZZ Bathing/Showering Techniques Treatment (ICD-10-PCS; 2018-01-16)
DX: Z47.89 Encounter for other orthopedic aftercare (principal); N31.9 Neuromuscular dysfunction of bladder, unspecified; I10 Essential (primary) hypertension; R26.89 Other abnormalities of gait and mobility; D50.9 Iron deficiency anemia, unspecified; E78.5 Hyperlipidemia, unspecified; G89.18 Other acute postprocedural pain; G47.30 Sleep apnea, unspecified; K21.9 Gastro-esophageal reflux disease without esophagitis; K59.00 Constipation, unspecified; M54.9 Dorsalgia, unspecified; M79.604 Pain in right leg; N39.41 Urge incontinence; Z74.09 Other reduced mobility
CPT/HCPCS: 80048; 80053; 81001; 82728; 83540; 83735; 84100; 85025; 87081; 87086; 97110; 97112; 97116; 97150; 97163; 97166; 97530; 97535